=== PATIENT | female | born 1955 | race Caucasian/White ===

== ENCOUNTER 2016-04-04 04:52 | Emergency (ER) | payer BC ==
[~2016-04-04] VITALS: Ht 172.7 cm; Wt 104.4 kg
[~2016-04-04 04:52] MED LIST: ADIPEX-P37.5 M1 PO; ADULT LOW DOSE81 M1 PO; B COMPLETE1 EACH PO; BIOTIN 5000MCG PO; BLACK COHOSH40 M1 PO; CALCIUM 600 +1 EA13 PO; CALCIUM 600 +1 EAC6 PO; CEFDINIR300 MG PO; CIPRO500 MG PO; CLARITIN,ALAVAR10 MG PO; CRANBERRY TABL1 EACH PO; CRANBERRY500 M2 PO; CYANOCOBALAM1000 MCG PO; DAILY VITAMIN1 EAC8 PO; ENABLEX15 MG PO; HYDROCHLOROTH12.5 M3 PO; KRILL OIL500 MG PO; LANSOPRAZOLE30 MG PO; LISINOPRIL10 MG PO; LO-DOSE ASPIRIN81 M1 PO; MELOXICAM15 MG PO; MIRALAX255 GM PO; MOBIC7.5 MG PO; MULTIVITAMIN1 EAC2 PO; PREVACID30 MG PO; PROBIOTIC1 EAC1 PO; TURMERIC500 MG PO; VITAMIN B-6100 MG PO; VITAMIN C + RO500 MG PO; VITAMIN C1000 MG PO; VOLTAREN 1% GE100 GM TP; VYTORIN 10/41 TABLET PO; ZYBAN 150 MG T150 MG PO
[2016-04-04 05:59] LABS: D-DIMER ELISA 0.54 mg/L FEU (< 0.57)
[2016-04-04] MEDS ORDERED: TORADOL10 MG PO (08:21)
[2016-04-04] MEDS ORDERED: MEDROL DOSEPAK4 MG PO (08:21)
[2016-04-04 10:06] VITALS: BP 137/81
== END 2016-04-04 10:11 | disposition home or self-care (01) ==
LOC: EME 04:52
PROVIDERS: Emergency Medicine
DX: M25.531 Pain in right wrist (principal); R60.0 Localized edema; I25.10 Atherosclerotic heart disease of native coronary artery without angina pectoris; E78.5 Hyperlipidemia, unspecified; I10 Essential (primary) hypertension; K21.9 Gastro-esophageal reflux disease without esophagitis; I25.2 Old myocardial infarction; Z79.82 Long term (current) use of aspirin
CPT/HCPCS: 73110; 84550; 85379; 93971; 99281; 99284; J1100; J1885

== ENCOUNTER 2017-07-06 10:35 | Day surgery (SDC) | payer BC ==
[~2017-07-06] VITALS: Ht 172.7 cm; Wt 106.1 kg
[~2017-07-06 10:35] MED LIST changes: +ADIPEX-P37.5 MG PO; +ALIGN10.5 MG PO; +ASCORBIC ACID500 M3 PO; +BIOTIN800 MCG PO; +LEXAPRO20 MG PO; +LIPITOR40 MG PO; +MEDROL DOSEPAK4 MG PO; +TORADOL10 MG PO; +VITAMIN B-122000 MC1 PO; +WOMEN'S 50 PLU1 EACH PO; +ZESTRIL10 MG PO; +ZINC50 M1 PO
[2017-07-06 11:53] VITALS: BP 119/60
== END 2017-07-06 12:43 | disposition home or self-care (01) ==
LOC: SDC 10:35
PROC: 0CJYXZZ Inspection of Mouth and Throat, External Approach (ICD-10-PCS; principal; 2017-07-06)
DX: Q27.8 Other specified congenital malformations of peripheral vascular system (principal); L59.8 Other specified disorders of the skin and subcutaneous tissue related to radiation; Z53.09 Procedure and treatment not carried out because of other contraindication; Z79.899 Other long term (current) drug therapy; Z73.3 Stress, not elsewhere classified; I10 Essential (primary) hypertension; E78.5 Hyperlipidemia, unspecified; K21.9 Gastro-esophageal reflux disease without esophagitis; E03.9 Hypothyroidism, unspecified; F32.9 Major depressive disorder, single episode, unspecified; G47.30 Sleep apnea, unspecified; E11.9 Type 2 diabetes mellitus without complications; Z82.49 Family history of ischemic heart disease and other diseases of the circulatory system; Z81.8 Family history of other mental and behavioral disorders; Z79.82 Long term (current) use of aspirin; Z88.0 Allergy status to penicillin; Z96.651 Presence of right artificial knee joint; F50.9 Eating disorder, unspecified; F40.240 Claustrophobia
CPT/HCPCS: J0690